=== PATIENT | female | born 1995 | race African-American/Black ===

== ENCOUNTER 2021-08-04 11:30 | Emergency (ER) | payer SELFPAY ==
[2021-08-04] MEDS ORDERED: Ibuprofen 800 MG TAB ONE (14:07)
== END 2021-08-04 14:20 | disposition home or self-care (01) ==
LOC: ERS 11:30
DX: S86.911A Strain of unspecified muscle(s) and tendon(s) at lower leg level, right leg, initial encounter (principal); X58.XXXA Exposure to other specified factors, initial encounter